=== PATIENT | male | born 1955 | race Caucasian/White ===

== ENCOUNTER 2016-12-30 15:25 | Emergency (ER) | payer OTHER ==
[~2016-12-30] VITALS: Ht 172.7 cm; Wt 65.3 kg
[~2016-12-30 15:25] MED LIST: CYCLOBENZAPRINE10 MG ORAL; GABAPENTIN300 MG ORAL; IBUPROFEN800 MG ORAL
[2016-12-30 15:40] VITALS: BP 1/1
--- NOTE | 2016-12-30 15:42 | Emergency Room Report ---
History of Present Illness General Chief Complaint: Multiple Trauma/Fall Source: Patient Present Illness HPI I went to see the patient at 15:19 but he had left without being seen. Allergies: Coded Allergies: CODEINE (Unverified Allergy, Mild, Rash, 03/22/14) Nursing Documentation-PMH Hx Cardiac Problems: No Hx Hypertension: No Hx Pacemaker: No Hx Asthma: No Hx COPD: No Hx Cerebrovascular Accident: No Physical Exam Vital Signs Date Time Temp Pulse Resp B/P Pulse Ox O2 Delivery O2 Flow Rate FiO2 12/30/16 15:20 98.1 86 18 122/78 98 Room Air Medical Decision Making PA Attestation Dr. Salcido is my supervising physician. Patient management was discussed with my supervising physician ER Course Patient has LWBS Last Vital Signs Date Time Temp Pulse Resp B/P Pulse Ox O2 Delivery O2 Flow Rate FiO2 12/30/16 15:20 98.1 86 18 122/78 98 Room Air Disposition: LEFT W/OUT BEING SEEN Condition: Unknown XENIA ULRICH Dec 30, 2016 15:42
== END 2016-12-30 15:50 | disposition left against medical advice (07) ==
LOC: EDBD 15:25 → EMR 15:50
DX: S60.512A Abrasion of left hand, initial encounter (principal); Z53.21 Procedure and treatment not carried out due to patient leaving prior to being seen by health care provider
CPT/HCPCS: 99281